=== PATIENT | male | born 1975 | race Caucasian/White ===

== ENCOUNTER 2019-03-12 10:19 | Emergency (ER) | payer SELFPAY ==
[~2019-03-12] VITALS: Ht 180.3 cm; Wt 67.2 kg
[2019-03-12 10:34] VITALS: BP 137/92
== END 2019-03-12 11:57 | disposition home or self-care (01) ==
LOC: ED 11:47
DX: L03.116 Cellulitis of left lower limb (principal); R11.10 Vomiting, unspecified
CPT/HCPCS: 99284

== ENCOUNTER 2019-09-15 11:51 | Emergency (ER) | payer SELFPAY ==
[~2019-09-15] VITALS: Ht 180.3 cm; Wt 69.0 kg
[2019-09-15 12:29] VITALS: BP 160/103
--- NOTE | 2019-09-15 12:39 | NUR ---
PT HERE WITH C/O MID BACK PAIN, STATES CHIROPRACTIC APPT X 4 DAYS AGO.
[2019-09-15] MEDS ORDERED: KETOROLAC 30 MG/1 ML ONE (12:43)
[2019-09-15] MEDS ORDERED: KETOROLAC 30 MG/1 ML IM ONE (13:00)
[2019-09-15] MEDS ORDERED: DIAZEPAM 5 MG TABLET PO ONE (13:00)
--- NOTE | 2019-09-15 13:05 | NUR ---
PT MEDICATED PER ORDERS.
--- NOTE | 2019-09-15 13:47 | NUR ---
Patient/Caregiver given discharge instructions and they have confirmed that they understand the instructions. Patient ambulatory with steady gait.
== END 2019-09-15 13:53 | disposition home or self-care (01) ==
LOC: ED 13:50
DX: S29.012A Strain of muscle and tendon of back wall of thorax, initial encounter (principal); F17.200 Nicotine dependence, unspecified, uncomplicated; G89.29 Other chronic pain; X58.XXXA Exposure to other specified factors, initial encounter; Y93.89 Activity, other specified; Y92.89 Other specified places as the place of occurrence of the external cause; Y99.8 Other external cause status
CPT/HCPCS: 72072; 96372; 99283; J1885